=== PATIENT | male | born 1990 | race Two or more races ===

== ENCOUNTER 2016-11-04 04:58 | Emergency (ER) | payer SELFPAY ==
[~2016-11-04] VITALS: Ht 180.3 cm; Wt 68.1 kg
[2016-11-04 05:01] VITALS: BP 128/76
== END 2016-11-04 11:20 | disposition left against medical advice (07) ==
LOC: EDBD 04:58 → ER 04:58
DX: R51 Headache (principal); Z53.21 Procedure and treatment not carried out due to patient leaving prior to being seen by health care provider

== ENCOUNTER 2016-12-02 05:44 | Emergency (ER) | payer SELFPAY ==
[~2016-12-02] VITALS: Ht 175.3 cm; Wt 85.0 kg
[2016-12-02 07:29] VITALS: BP 117/71
== END 2016-12-02 08:48 | disposition left against medical advice (07) ==
LOC: ER 05:44
DX: R20.0 Anesthesia of skin (principal); Z53.21 Procedure and treatment not carried out due to patient leaving prior to being seen by health care provider

== ENCOUNTER 2017-02-14 04:36 | Emergency (ER) | payer MEDICAID ==
[~2017-02-14] VITALS: Ht 180.3 cm; Wt 63.0 kg
[2017-02-14] MEDS ORDERED: KETOROLAC 60MG/2ML VIAL IM ONE (05:15)
[2017-02-14 06:05] VITALS: BP 129/94
== END 2017-02-14 06:06 | disposition home or self-care (01) ==
LOC: ER 04:56
DX: M79.671 Pain in right foot (principal); F17.200 Nicotine dependence, unspecified, uncomplicated; J45.909 Unspecified asthma, uncomplicated; F12.10 Cannabis abuse, uncomplicated
CPT/HCPCS: 73630; 99284; Z7610; J1885